=== PATIENT | female | born 1970 | race American Indian/Alaskan Native ===

== ENCOUNTER 2017-02-08 13:05 | Emergency (ER) | payer OTHER ==
[2017-02-08 14:55] VITALS: BP 142/86
[2017-02-08] MEDS ORDERED: NORCO 5/325 PO ONE (18:02)
[2017-02-08] MEDS ORDERED: FLEXERIL PO ONE (18:02)
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
== END 2017-02-08 18:34 | disposition home or self-care (01) ==
LOC: ED 13:05
DX: S16.1XXA Strain of muscle, fascia and tendon at neck level, initial encounter (principal); M25.512 Pain in left shoulder; I10 Essential (primary) hypertension; K21.9 Gastro-esophageal reflux disease without esophagitis; J45.909 Unspecified asthma, uncomplicated; F17.200 Nicotine dependence, unspecified, uncomplicated
CPT/HCPCS: 99283

== ENCOUNTER 2018-05-30 11:24 | Outpatient (CLI) | payer OTHER ==
--- NOTE | 2018-05-30 13:26 | Mammography Report ---
Screening mammogram: Routine views are compared to prior exam in October 2015. The overall breast pattern in generally fatty replaced. There is a circumscribed 7 mm nodule in the central right breast and a slightly smaller nodule just anterior to this in CC projection that are not clearly identified in the lateral projection. These are not apparent on her prior exam however the remainder of the breast pattern is generally unchanged. CAD used. Impression: Right breast asymmetries. Recommendation: Additional compression imaging and ultrasound if needed. BI-RADS CATEGORY: 0 = Needs additional imaging evaluation ACR BI-RADS MAMMOGRAPHIC CODES: 0 = Needs additional imaging evaluation; 1 = Negative; 2 = Benign; 3 = Probably benign; 4 = Suspicious; 5 = Malignant; 6 = Known biopsy-proven malignancy COMMENT: 1. Dense breast tissue, i.e., adenosis, fibrocystic changes, etc., may obscure an underlying neoplasm. 2. Approximately 10% of cancers are not detected with mammography. 3. A negative mammography report should not delay biopsy if a clinically suspicious mass is present.
== END 2018-05-30 11:25 | disposition home or self-care (01) ==
LOC: MAMMO 11:24
PROVIDERS: ATTEND Family Medicine
DX: Z12.31 Encounter for screening mammogram for malignant neoplasm of breast (principal); I10 Essential (primary) hypertension; E66.9 Obesity, unspecified; J45.909 Unspecified asthma, uncomplicated; F41.9 Anxiety disorder, unspecified; F17.219 Nicotine dependence, cigarettes, with unspecified nicotine-induced disorders; Z90.710 Acquired absence of both cervix and uterus; Z88.8 Allergy status to other drugs, medicaments and biological substances
CPT/HCPCS: 77067

== ENCOUNTER 2019-06-29 07:44 | Emergency (ER) | payer OTHER ==
[2019-06-29] MEDS ORDERED: PERCOCET 5/325 PO ONE (09:11)
[2019-06-29] MEDS ORDERED: TORADOL IM ONE (09:11)
--- NOTE | 2019-06-29 09:18 | Emergency Department Report ---
ED Lower Extremity HPI - General Chief Complaint: Extremity Problem,Nontraumatic Stated Complaint: LFT LEG PAIN/SWELLING Time Seen by Provider: 06/29/19 09:08 Source: patient Mode of arrival: Wheelchair Limitations: No Limitations - History of Present Illness Initial Comments: Mrs. Kaba is a 49 yo female with history of asthma, GERD, hypertension, a nxiety who presents with left upper thigh pain for the 3 weeks. She works as a sales route driver helper. She feels as if her positioning on equipment at work may be causing the pain. She has pain in the left upper thigh muscle. Denies swelling. Denies trauma. Denies fever. MD Complaint: other (left upper thigh pain ) -: Gradual Injury: Thigh: Left Type of Injury: blunt Place: work Severity: moderate Worsens With: palpation Context: other (fork lift manager) Associated Symptoms: ambulatory Treatments Prior to Arrival: other (ibuprofen stopped working) - Related Data Home Medications Medication Instructions Recorded Confirmed Last Taken Lisinopril [Zestril] 20 mg PO QDAY 03/04/14 02/08/17 02/08/17 14:48 Triamterene/Hydrochlorothiazid 37.5 each PO DAILY 03/04/14 02/08/17 02/08/17 14:47 [Triamterene-Hctz 50-25 mg Cap] Previous Rx's Medication Instructions Recorded Last Taken Type ALPRAZolam [Xanax] 0.25 mg PO TID PRN #12 tablet 03/04/14 Unknown Rx Cyclobenzaprine [Flexeril] 10 mg PO TID PRN #15 tablet 02/08/17 Unknown Rx traMADol [Ultram] 50 mg PO Q6HR PRN #20 tablet 02/08/17 Unknown Rx Cyclobenzaprine [Flexeril] 10 mg PO TID PRN #20 tablet 06/29/19 Unknown Rx oxyCODONE /ACETAMINOPHEN [Percocet 1 tab PO Q6HR PRN #10 tablet 06/29/19 Unknown Rx 5/325] Allergies Allergy/AdvReac Type Severity Reaction Status Date / Time promethazine HCl Allergy Hives Verified 02/08/17 14:46 [From Phenergan] ED Review of Systems ROS: Stated complaint: LFT LEG PAIN/SWELLING Other details as noted in HPI Constitutional: denies: fever, malaise Respiratory: denies: shortness of breath Cardiovascular: denies: chest pain Gastrointestinal: denies: abdominal pain Skin: denies: rash, lesions Neurological: denies: numbness, paresthesias ED Past Medical Hx - Past Medical History Hx Hypertension: Yes Hx Congestive Heart Failure: No Hx Diabetes: No Hx GERD: Yes Hx Psychiatric Treatment: Yes (anxiety) Hx Asthma: Yes Hx COPD: No - Surgical History Additional Surgical History: partial hysterectomy. csection x 2 - Social History Smoking Status: Never Smoker Substance Use Type: Alcohol - Medications Home Medications: Home Medications Medication Instructions Recorded Confirmed Last Taken Type ALPRAZolam [Xanax] 0.25 mg PO TID PRN #12 tablet 03/04/14 02/08/17 Unknown Rx Lisinopril [Zestril] 20 mg PO QDAY 03/04/14 02/08/17 02/08/17 14:48 History Triamterene/Hydrochlorothiazid 37.5 each PO DAILY 03/04/14 02/08/17 02/08/17 14:47 History [Triamterene-Hctz 50-25 mg Cap] Cyclobenzaprine [Flexeril] 10 mg PO TID PRN #15 tablet 02/08/17 Unknown Rx traMADol [Ultram] 50 mg PO Q6HR PRN #20 tablet 02/08/17 Unknown Rx Cyclobenzaprine [Flexeril] 10 mg PO TID PRN #20 tablet 06/29/19 Unknown Rx oxyCODONE /ACETAMINOPHEN [Percocet 1 tab PO Q6HR PRN #10 tablet 06/29/19 Unknown Rx 5/325] ED Physical Exam - General Limitations: No Limitations General appearance: alert, in no apparent distress - Respiratory Respiratory exam: Absent: respiratory distress - Extremities Exam Extremities exam: Present: normal inspection, full ROM. Absent: tenderness - Expanded Lower Extremity Exam Left Hip exam: Present: normal inspection, full ROM. Absent: tenderness, swelling, abrasion, laceration, ecchymosis, deformity, crepidus, dislocation, erythema, external rotation, internal rotation, shortening, pelvic stability Knee exam: Present: normal inspection, full ROM. Absent: tenderness, swelling, abrasion, laceration, ecchymosis, deformity Lower Leg exam: Present: normal inspection, full ROM. Absent: tenderness, swelling, abrasion Ankle exam: Present: normal inspection, full ROM. Absent: tenderness, swelling, abrasion Foot/Toe exam: Present: normal inspection, full ROM. Absent: tenderness, swelling, abrasion Neuro vascular tendon exam: Present: no vascular compromise - Neurological Exam Neurological exam: Present: alert, oriented X3 - Psychiatric Psychiatric exam: Present: normal affect, normal mood - Skin Skin exam: Present: warm, dry, intact, normal color ED Course Vital Signs 06/29/19 08:11 Temperature 98.6 F Pulse Rate 89 Respiratory 18 Rate Blood Pressure 120/85 O2 Sat by Pulse 95 Oximetry ED Lower Extremity MDM - Medical Decision Making Mrs. Kaba presents with left thigh strain due to overuse at work. No indication of DVT, cellulitis, bursitis. DJD is a consideration. I have referred her to orthopedic surgeon. Prescribed Percocet and Flexeril. Critical care attestation.: If time is entered above; I have spent that time in minutes in the direct care of this critically ill patient, excluding procedure time. ED Disposition Clinical Impression: Strain of left hip and thigh Disposition: DC- TO HOME OR SELFCARE Is pt being admited?: No Does the pt Need Aspirin: No Condition: Stable Instructions: Muscle Strain (ED) Prescriptions: Cyclobenzaprine [Flexeril] 10 mg PO TID PRN #20 tablet PRN Reason: Muscle Spasm oxyCODONE /ACETAMINOPHEN [Percocet 5/325] 1 tab PO Q6HR PRN #10 tablet PRN Reason: Pain Referrals: SHELBY CHOW MD [Staff Physician] - 3-5 Days Forms: Work/School Release Form(ED)
[2019-06-29 09:27] VITALS: BP 121/86
== END 2019-06-29 09:26 | disposition home or self-care (01) ==
LOC: ED 07:44
DX: S76.012A Strain of muscle, fascia and tendon of left hip, initial encounter (principal); S76.912A Strain of unspecified muscles, fascia and tendons at thigh level, left thigh, initial encounter; J45.909 Unspecified asthma, uncomplicated; K21.9 Gastro-esophageal reflux disease without esophagitis; I10 Essential (primary) hypertension; F41.9 Anxiety disorder, unspecified; Z79.899 Other long term (current) drug therapy; Z88.8 Allergy status to other drugs, medicaments and biological substances; Z90.711 Acquired absence of uterus with remaining cervical stump; W22.8XXA Striking against or struck by other objects, initial encounter; Y93.89 Activity, other specified; Y92.69 Other specified industrial and construction area as the place of occurrence of the external cause; Y99.8 Other external cause status
CPT/HCPCS: 96372; 99282; J1885

== ENCOUNTER 2019-07-22 08:10 | Outpatient (CLI) | payer OTHER ==
--- NOTE | 2019-07-22 16:08 | Mammography Report ---
DIGITAL SCREENING MAMMOGRAM WITH CAD, 07/22/2019 INDICATION: Routine screening mammography. TECHNIQUE: Digital bilateral 2D mammography was obtained in the craniocaudal and mediolateral obliq ue projections. This examination was interpreted with the benefit of Computer-Aided Detection analysi s. COMPARISON: 05/30/2018 FINDINGS: Breast Density: The breasts are almost entirely fatty. There is no evidence of dominant mass, suspicious calcifications or architectural distortion in eithe r breast. IMPRESSION: No mammographic evidence of malignancy. Follow up recommendation: Routine yearly BI-RADS Category 1: Negative. A "normal" or negative report should not discourage follow up or biopsy of a clinically significant f inding. A written summary of these findings will be mailed to the patient. The patient will be entered into a mammography reporting system which will generate a reminder letter for the patient's next appointmen t at the appropriate interval. The [employer] recommends yearly mammograms starting at age 40 and continuing as l tayo as a woman is in good health. Breast MRI is recommended for women with an approximate 20-25% or greater lifetime risk of breast cancer, including women with a strong family history of breast or ova destiney cancer or who have been treated for Hodgkin's disease. Signer Name: Den Cisneros MD Signed: 07/22/2019 4:03 PM Workstation Name: [id number]
== END 2019-07-22 08:11 | disposition home or self-care (01) ==
LOC: SPVWC 08:10
PROVIDERS: ATTEND Family Medicine
DX: Z12.31 Encounter for screening mammogram for malignant neoplasm of breast (principal); I10 Essential (primary) hypertension; J45.909 Unspecified asthma, uncomplicated; K21.9 Gastro-esophageal reflux disease without esophagitis
CPT/HCPCS: 77067

== ENCOUNTER 2021-03-13 11:47 | Emergency (ER) | payer BC ==
[2021-03-13] MEDS ORDERED: IPRATROPIUM 0.02% NEBU 2.5 ML IH ONE (14:06)
[2021-03-13] MEDS ORDERED: ALBUTEROL 2.5 MG/3 ML NEBU IH ONE (14:06)
[2021-03-13] MEDS ORDERED: predniSONE 20 MG TAB PO ONE ×2 (14:28→16:35)
--- NOTE | 2021-03-13 14:32 | Emergency Department Report ---
ED General Adult HPI - General Chief complaint: Dyspnea/Respdistress Stated complaint: SOB/COUGHING PUI?: Yes Time Seen by Provider: 03/13/21 14:12 Source: patient, RN notes reviewed, old records reviewed Mode of arrival: Ambulatory Limitations: No Limitations - History of Present Illness Initial comments: The patient was evaluated in the emergency department for symptoms described in the history of present illness. He/she was evaluated in the context of the global COVID-19 pandemic, which necessitated consideration that the patient might be at risk for infection with the virus that causes COVID-19. Institutional protocols and algorithms that pertain to the evaluation of patients at risk for COVID-19 are in a state of rapid change based on information released by regulatory bodies including the CDC and federal and state organizations. These policies and algorithms were followed during the patient's care in the emergency department. Please note that these policies, procedures and recommendations changed on a rapid basis. During the entire history and physical examination, I had a complete personal protective equipment. The patient is a 50-year-old female. She has a history of diabetes, hypertension, clean cardiac catheterization in 2013 at this hospital, without angiographic evidence of coronary artery disease, asthma/reactive airways disease, diagnosed at the age of 29, with no lifetime intubations, body mass index of 43, and occasional tobacco use. The patient presents to the ER today with a complaint of painless cough, wheezing. This has been going on for a few days. The patient endorses decreased appetite, but no loss of taste, and no loss of smell. The patient denies physical pain. Patient has clear mucus production. Patient received her first Covid vaccination on February 25. Patient has not been around anyone that has Covid that she is aware of. The patient currently has no posterior leg pain or leg swelling, denies recent surgery, immobilization, patient denies travel, immobilization or surgery. Of note, this patient did have a relatively recent trip to [place] a few weeks ago, however, she reports frequent stops, and no prolonged immobilization. Her symptoms typically improved with albuterol and steroids. -: Gradual, days(s) Consistency: constant Improves with: rest Worsens with: movement - Related Data Home Medications Medication Instructions Recorded Confirmed Last Taken Triamterene/Hydrochlorothiazid 37.5 each PO DAILY 03/04/14 02/08/17 02/08/17 14:47 [Triamterene-Hctz 50-25 mg Cap] lisinopriL [Zestril] 20 mg PO QDAY 03/04/14 02/08/17 02/08/17 14:48 Previous Rx's Medication Instructions Recorded Last Taken Type traMADoL [Ultram] 50 mg PO Q6HR PRN #20 tablet 02/08/17 Unknown Rx Benzonatate [Tessalon Perles] 100 mg PO Q8HR PRN #30 capsule 05/10/20 Unknown Rx Fluticasone [Flonase] 2 spray NS QDAY #1 bottle 05/10/20 Unknown Rx Loratadine [Claritin] 10 mg PO DAILY #30 tablet 05/10/20 Unknown Rx Acetaminophen [Non-Aspirin Extra 500 mg PO Q6HR PRN #30 tablet 03/13/21 Unknown Rx Strength] Albuterol Sulfate [Proair 90 mcg IH Q4HR PRN #2 aer.pow.ba 03/13/21 Unknown Rx Respiclick] Benzonatate [Tessalon Perles] 100 mg PO Q8HR PRN #30 capsule 03/13/21 Unknown Rx Fluticasone [Flonase] 1 spray NS QDAY #1 bottle 03/13/21 Unknown Rx predniSONE [Deltasone] 40 mg PO QDAY #8 tab 03/13/21 Unknown Rx Allergies Allergy/AdvReac Type Severity Reaction Status Date / Time promethazine HCl Allergy Hives Verified 02/08/17 14:46 [From Phenergan] ED Review of Systems ROS: Stated complaint: SOB/COUGHING Other details as noted in HPI Constitutional: chills, fever, malaise, weakness Eyes: denies: eye discharge ENT: congestion Respiratory: cough, shortness of breath Cardiovascular: denies: chest pain Gastrointestinal: denies: abdominal pain Musculoskeletal: denies: myalgia Neurological: weakness ED Past Medical Hx - Past Medical History Previous Medical History?: Yes Hx Hypertension: Yes Hx Congestive Heart Failure: No Hx Diabetes: Yes Hx GERD: Yes Hx Psychiatric Treatment: Yes (anxiety) Hx Asthma: Yes Hx COPD: No - Surgical History Additional Surgical History: partial hysterectomy. csection x 2 - Social History Smoking Status: Current Every Day Smoker Substance Use Type: None - Medications Home Medications: Home Medications Medication Instructions Recorded Confirmed Last Taken Type Triamterene/Hydrochlorothiazid 37.5 each PO DAILY 03/04/14 02/08/17 02/08/17 1 4:47 History [Triamterene-Hctz 50-25 mg Cap] lisinopriL [Zestril] 20 mg PO QDAY 03/04/14 02/08/17 02/08/17 14:48 History traMADoL [Ultram] 50 mg PO Q6HR PRN #20 tablet 02/08/17 Unknown Rx Benzonatate [Tessalon Perles] 100 mg PO Q8HR PRN #30 capsule 05/10/20 Unknown Rx Fluticasone [Flonase] 2 spray NS QDAY #1 bottle 05/10/20 Unknown Rx Loratadine [Claritin] 10 mg PO DAILY #30 tablet 05/10/20 Unknown Rx Acetaminophen [Non-Aspirin Extra 500 mg PO Q6HR PRN #30 tablet 03/13/21 Unknown Rx Strength] Albuterol Sulfate [Proair 90 mcg IH Q4HR PRN #2 aer.pow.ba 03/13/21 Unknown Rx Respiclick] Benzonatate [Tessalon Perles] 100 mg PO Q8HR PRN #30 capsule 03/13/21 Unknown Rx Fluticasone [Flonase] 1 spray NS QDAY #1 bottle 03/13/21 Unknown Rx predniSONE [Deltasone] 40 mg PO QDAY #8 tab 03/13/21 Unknown Rx ED Physical Exam - General Limitations: No Limitations General appearance: alert, in no apparent distress, anxious, obese - Head Head exam: Present: atraumatic, normocephalic - Eye Eye exam: Present: normal appearance, EOMI. Absent: nystagmus - ENT ENT exam: Present: normal exam, normal orophraynx, mucous membranes moist, normal external ear exam - Neck Neck exam: Present: normal inspection, full ROM. Absent: tenderness, meningismus - Respiratory Respiratory exam: Present: wheezes, rhonchi. Absent: respiratory distress, stridor - Cardiovascular Cardiovascular Exam: Present: regular rate, normal rhythm, normal heart sounds. Absent: bradycardia, tachycardia, irregular rhythm, systolic murmur, diastolic murmur, rubs, gallop - GI/Abdominal GI/Abdominal exam: Present: soft. Absent: distended, tenderness, guarding, rebound, rigid, pulsatile mass - Extremities Exam Extremities exam: Present: normal inspection, full ROM, other (2+ pulses noted in the bilateral upper and lower extremities. There is no palpable cord. negative Homans sign. Muscular compartments are soft. The pelvis is stable.). Absent: pedal edema, calf tenderness - Back Exam Back exam: Present: normal inspection, full ROM. Absent: tenderness, CVA tenderness (R), CVA tenderness (L), paraspinal tenderness, vertebral tenderness - Neurological Exam Neurological exam: Present: alert, other (No facial droop. Tongue midline. Extraocular movements intact bilaterally. Facial sensation intact to light touch in V1, V2, V3 distribution bilaterally. 5 and a 5 strength in 4 extremities. Sensation intact to light touch in 4 extremities.) - Psychiatric Psychiatric exam: Present: anxious - Skin Skin exam: Present: warm, dry, intact, normal color. Absent: rash ED Course Vital Signs 03/13/21 03/13/21 13:53 16:37 Temperature 98.6 F Pulse Rate 90 Respiratory 22 Rate Blood Pressure 117/72 [Right] O2 Sat by Pulse 98 Oximetry O2 Sat by Pulse 99 Oximetry [ Digit-Finger] - Reevaluation(s) Reevaluation #1: 03/13/21 14:38 Differential diagnosis, including but not limited to: Bronchitis, pneumonitis, pneumonia, reactive airways disease, COVID-19 Assessment and plan: 50-year-old female, who is currently afebrile, with reassuring vital signs, with a history of reactive airways disease, who is not currently tachycardic or significantly hypoxic, who denies pertinent DVT and pulmonary embolism risk factors, who is low risk by Wells criteria for pulmonary embolism, with painless cough and wheezing and shortness of breath, low-grade temperature at home, no documented fever that she is aware of. Suspect bronchitis versus pneumonitis. Patient has received one Covid vaccination. She will be given albuterol, Atrovent and steroids. We will obtain x-ray of the chest and EKG. Patient will be given 5-minute trial of ambulation when she is complete her therapy. Reassess after initial data points. Have discussed this plan of care with the patient, who verbalized understanding, and is amenable to this plan of care. Reevaluation #2: 03/13/21 16:45 Patient feels improved. Patient able to ambulate with a steady gait without desaturation. Her chest x-ray is unremarkable. Her EKG is unremarkable. She is suitable for trial of outpatient management at this time. This is likely reactive airways disease, and even if patient has Covid after receiving her first round of COVID-19 vaccination, she is suitable for discharge with outpatient follow-up. - Pulse Oximetry Interpretation Digit-Finger Initial Pulse Oximetry Readin O2 Sat by Pulse Oximetry: 99 Actions Taken: none ED Medical Decision Making - Lab Data Vital Signs 03/13/21 13:53 Temperature 98.6 F Pulse Rate 90 Respiratory 22 Rate Blood Pressure 117/72 [Right] O2 Sat by Pulse 98 Oximetry - EKG Data 03/13/21 16:37 EKG interpreted at 15: 20 Sinus rhythm, 83 bpm. Normal axis, normal intervals, motion artifact, borderline left ventricular hypertrophy. This is an abnormal EKG. This is not a STEMI. - Radiology Data Radiology results: pending, report reviewed, image reviewed [facility] [address] [place] [address] XRay Report Signed Patient: GHANSHYAM WILSON MR#: [id number] : 1970 Acct:[id number] Age/Sex: 50 / F ADM Date: 03/13/21 Loc: ED Attending Dr: Ordering Physician: ISABEL GREGORY MD Date of Service: 03/13/21 Procedure(s): XR chest routine 2V Accession Number(s): [id number] cc: ISABEL GREGORY MD Fluoro Time In Minutes: CHEST 2 VIEWS INDICATION / CLINICAL INFORMATION: Cough, shortness of breath, chills. COMPARISON: 05/10/2020 FINDINGS: SUPPORT DEVICES: None. HEART / MEDIASTINUM: No significant abnormality. LUNGS / PLEURA: No significant pulmonary or pleural abnormality. No pneumothorax. ADDITIONAL FINDINGS: No significant additional findings. IMPRESSION: 1. No acute findings. Signer Name: Ezra Espinoza MD Signed: 03/13/2021 3:13 PM Workstation Name: [email or web address] [id number] Transcribed By: JACKELIN Dictated By: Ezra Espinoza MD Electronically Authenticated By: Ezra Espinoza MD Signed Date/Time: 03/13/21 1513 DD/ 1512 Critical care attestation.: If time is entered above; I have spent that time in minutes in the direct care of this critically ill patient, excluding procedure time. ED Disposition Clinical Impression: Reactive airway disease, Suspected 2019-nCoV infection Disposition: DC-01 TO HOME OR SELFCARE Is pt being admited?: No Does the pt Need Aspirin: No Condition: Stable Instructions: Asthma, Adult, COVID-19 Additional Instructions: Patient may have either reactive airways disease/asthma, or COVID-19. Covid symptoms typically last 10 to 14 days, but may persist for longer than that. There is no cure at this time for COVID. Please make certain to self isolate and self quarantine, follow-up with an outpatient primary care doctor within the next 3 to 5 days, wash hands with soap and water frequently, thoroughly and often, patient may take the prescribed medications as needed and directed. Advance diet and drink plenty of fluids as tolerated. Avoid interactions with the very elderly, very young, and those with chronic medical conditions. Return to the emergency room right away with new pain, worsening pain, migration of pain, projectile vomiting, change in mental status, confusion, inability to tolerate liquid feeds, new, worsened or different symptoms not present on the initial emergency room evaluation. We do recommend follow-up with an outpatient primary care doctor, within the next 3 to 5 days, for repeat evaluation. Referrals: KENAN PENALOZA [Other] - 3-5 Days
--- NOTE | 2021-03-13 15:17 | XRay Report ---
CHEST 2 VIEWS INDICATION / CLINICAL INFORMATION: Cough, shortness of breath, chills. COMPARISON: 05/10/2020 FINDINGS: SUPPORT DEVICES: None. HEART / MEDIASTINUM: No significant abnormality. LUNGS / PLEURA: No significant pulmonary or pleural abnormality. No pneumothorax. ADDITIONAL FINDINGS: No significant additional findings. IMPRESSION: 1. No acute findings. Signer Name: Ezra Espinoza MD Signed: 03/13/2021 3:13 PM Workstation Name: [email or web address]
[2021-03-13 17:09] VITALS: BP 149/87
--- NOTE | 2021-03-16 17:11 | Electrocardiograph Report ---
[facility] Test Date: 2021-03-13 Test Time: 15:17:50 Pat Name: GHANSHYAM WILSON Department: Room: Gender: F Ems Driver: MARTHA : 1970 Requested By: ISABEL GREGORY Order Number: [id number] Reading MD: Bong Kwong Measurements Intervals [place] Rate: 83 P: 75 LA: 153 QRS: 47 QRSD: 96 T: 55 QT: 370 QTc: 434 Interpretive Statements Sinus rhythm No previous ECG available for comparison Electronically Signed On 03-16-2021 17:11:31 EDT by Bong Kwong
== END 2021-03-13 17:09 | disposition home or self-care (01) ==
LOC: ED 11:47
DX: J45.909 Unspecified asthma, uncomplicated (principal); Z20.822 Contact with and (suspected) exposure to COVID-19; I10 Essential (primary) hypertension; E11.9 Type 2 diabetes mellitus without complications; K21.9 Gastro-esophageal reflux disease without esophagitis; F41.9 Anxiety disorder, unspecified; F17.200 Nicotine dependence, unspecified, uncomplicated; Z98.890 Other specified postprocedural states; Z79.899 Other long term (current) drug therapy; Z88.8 Allergy status to other drugs, medicaments and biological substances
CPT/HCPCS: 71046; 93005; 94640; 99283; J7512

== ENCOUNTER 2021-03-24 13:46 | Emergency (ER) | payer BC ==
[2021-03-24 15:27] VITALS: BP 134/84
--- NOTE | 2021-03-24 15:31 | Emergency Department Report ---
ED Abdominal Pain HPI - General Chief Complaint: Abdominal Pain Stated Complaint: ABD PAINS Time Seen by Provider: 03/24/21 15:26 Source: patient Mode of arrival: Ambulatory Limitations: No Limitations - History of Present Illness Initial Comments: Patient is a 50-year-old female presents emergency room with complaints of lower abdominal discomfort that radiates to her back that began 3 days ago. Patient states that she has been constipated for the last 4 days, she states that she used one laxative [id number] without much relief. She states that she is still able to pass gas and tolerate p.o. intake. Patient states that she also had urinary frequency. She denies any fever, nausea, vomiting, diarrhea, dysuria, abnormal vaginal discharge. Past medical history of diabetes, GERD, asthma, anxiety, hypertension. Allergy to promethazine Severity scale (0 -10): 9 - Related Data Home Medications Medication Instructions Recorded Confirmed Last Taken Triamterene/Hydrochlorothiazid 37.5 each PO DAILY 03/04/14 02/08/17 02/08/17 14:47 [Triamterene-Hctz 50-25 mg Cap] lisinopriL [Zestril] 20 mg PO QDAY 03/04/14 02/08/17 02/08/17 14:48 Previous Rx's Medication Instructions Recorded Last Taken Type traMADoL [Ultram] 50 mg PO Q6HR PRN #20 tablet 02/08/17 Unknown Rx Benzonatate [Tessalon Perles] 100 mg PO Q8HR PRN #30 capsule 05/10/20 Unknown Rx Fluticasone [Flonase] 2 spray NS QDAY #1 bottle 05/10/20 Unknown Rx Loratadine [Claritin] 10 mg PO DAILY #30 tablet 05/10/20 Unknown Rx Acetaminophen [Non-Aspirin Extra 500 mg PO Q6HR PRN #30 tablet 03/13/21 Unknown Rx Strength] Albuterol Sulfate [Proair 90 mcg IH Q4HR PRN #2 aer.pow.ba 03/13/21 Unknown Rx Respiclick] Benzonatate [Tessalon Perles] 100 mg PO Q8HR PRN #30 capsule 03/13/21 Unknown Rx Fluticasone [Flonase] 1 spray NS QDAY #1 bottle 03/13/21 Unknown Rx predniSONE [Deltasone] 40 mg PO QDAY #8 tab 03/13/21 Unknown Rx Docusate Sodium [Colace] 100 mg PO BID PRN #20 capsule 03/24/21 Unknown Rx Glycerin 1 each RC DAILY PRN #7 supp.rect 03/24/21 Unknown Rx Sodium Phosphate,Chaves-Dibasic 133 ml RC ONCE #1 enema 03/24/21 Unknown Rx [Enema Ready To Use] Allergies Allergy/AdvReac Type Severity Reaction Status Date / Time promethazine HCl Allergy Hives Verified 02/08/17 14:46 [From Phenergan] ED Review of Systems ROS: Stated complaint: ABD PAINS Other details as noted in HPI Comment: All other systems reviewed and negative ED Past Medical Hx - Past Medical History Previous Medical History?: Yes Hx Hypertension: Yes Hx Congestive Heart Failure: No Hx Diabetes: Yes Hx GERD: Yes Hx Psychiatric Treatment: Yes (anxiety) Hx Asthma: Yes Hx COPD: No - Surgical History Past Surgical History?: Yes Additional Surgical History: partial hysterectomy. csection x 2 - Social History Smoking Status: Current Every Day Smoker Substance Use Type: None - Medications Home Medications: Home Medications Medication Instructions Recorded Confirmed Last Taken Type Triamterene/Hydrochlorothiazid 37.5 each PO DAILY 03/04/14 02/08/17 02/08/17 14:47 History [Triamterene-Hctz 50-25 mg Cap] lisinopriL [Zestril] 20 mg PO QDAY 03/04/14 02/08/17 02/08/17 14:48 History traMADoL [Ultram] 50 mg PO Q6HR PRN #20 tablet 02/08/17 Unknown Rx Benzonatate [Tessalon Perles] 100 mg PO Q8HR PRN #30 capsule 05/10/20 Unknown Rx Fluticasone [Flonase] 2 spray NS QDAY #1 bottle 05/10/20 Unknown Rx Loratadine [Claritin] 10 mg PO DAILY #30 tablet 05/10/20 Unknown Rx Acetaminophen [Non-Aspirin Extra 500 mg PO Q6HR PRN #30 tablet 03/13/21 Unknown Rx Strength] Albuterol Sulfate [Proair 90 mcg IH Q4HR PRN #2 aer.pow.ba 03/13/21 Unknown Rx Respiclick] Benzonatate [Tessalon Perles] 100 mg PO Q8HR PRN #30 capsule 03/13/21 Unknown Rx Fluticasone [Flonase] 1 spray NS QDAY #1 bottle 03/13/21 Unknown Rx predniSONE [Deltasone] 40 mg PO QDAY #8 tab 03/13/21 Unknown Rx Docusate Sodium [Colace] 100 mg PO BID PRN #20 capsule 03/24/21 Unknown Rx Glycerin 1 each RC DAILY PRN #7 supp.rect 03/24/21 Unknown Rx Sodium Phosphate,Chaves-Dibasic 133 ml RC ONCE #1 enema 03/24/21 Unknown Rx [Enema Ready To Use] ED Physical Exam - General Limitations: No Limitations General appearance: alert, in no apparent distress - Head Head exam: Present: atraumatic, normocephalic - Eye Eye exam: Present: normal appearance - ENT ENT exam: Present: mucous membranes moist - Respiratory Respiratory exam: Present: normal lung sounds bilaterally. Absent: respiratory distress, wheezes, rales, rhonchi, stridor, chest wall tenderness, accessory muscle use, decreased breath sounds, prolonged expiratory - Cardiovascular Cardiovascular Exam: Present: regular rate, normal rhythm, normal heart sounds. Absent: systolic murmur, diastolic murmur, rubs, gallop - GI/Abdominal GI/Abdominal exam: Present: soft, normal bowel sounds. Absent: distended, tenderness, guarding, rebound, rigid - Neurological Exam Neurological exam: Present: alert, oriented X3 - Psychiatric Psychiatric exam: Present: normal affect, normal mood - Skin Skin exam: Present: warm, dry, intact ED Course Vital Signs 03/24/21 15:26 Temperature 98.8 F Pulse Rate 73 Respiratory 20 Rate Blood Pressure 134/84 [Right] O2 Sat by Pulse 97 Oximetry ED Medical Decision Making - Lab Data Result diagrams: 03/24/21 15:32 03/24/21 15:32 Lab Results 03/24/21 03/24/21 03/24/21 Range/Units 15:32 15:32 16:02 WBC 8.8 (4.5-11.0) K/mm3 RBC 4.37 (3.65-5.03) M/mm3 Hgb 14.5 H (10.1-14.3) gm/dl Hct 43.5 H (30.3-42.9) % MCV 100 H (79-97) fl MCH 33 H (28-32) pg MCHC 33 (30-34) % RDW 15.0 (13.2-15.2) % Plt Count 130 L (140-440) K/mm3 Lymph % (Auto) 24.9 (13.4-35.0) % Chaves % (Auto) 7.9 H (0.0-7.3) % Eos % (Auto) 3.7 (0.0-4.3) % Baso % (Auto) 0.5 (0.0-1.8) % Lymph # (Auto) 2.2 (1.2-5.4) K/mm3 Chaves # (Auto) 0.7 (0.0-0.8) K/mm3 Eos # (Auto) 0.3 (0.0-0.4) K/mm3 Baso # (Auto) 0.0 (0.0-0.1) K/mm3 Seg Neutrophils % 63.0 (40.0-70.0) % Seg Neutrophils # 5.5 (1.8-7.7) K/mm3 Sodium 141 (137-145) mmol/L Potassium 4.5 (3.6-5.0) mmol/L Chloride 99.2 (98-107) mmol/L Carbon Dioxide 32 H (22-30) mmol/L Anion Gap 14 mmol/L BUN 11 (7-17) mg/dL Creatinine 0.8 (0.6-1.2) mg/dL Estimated GFR > 60 ml/min BUN/Creatinine Ratio 14 % Glucose 90 (65-100) mg/dL Calcium 9.0 (8.4-10.2) mg/dL Total Bilirubin 0.30 (0.1-1.2) mg/dL AST 19 (5-40) units/L ALT 15 (7-56) units/L Alkaline Phosphatase 70 (35-129) units/L Total Protein 7.0 (6.3-8.2) g/dL Albumin 3.8 L (3.9-5) g/dL Albumin/Globulin Ratio 1.2 % Lipase 19 (13-60) units/L Urine Color Yellow (Yellow) Urine Turbidity Clear (Clear) Urine pH 7.0 (5.0-7.0) Ur Specific [place] 1.017 (1.003-1.030) Urine Protein <15 mg/dl (Negative) mg/dL Urine Glucose (UA) Neg (Negative) mg/dL Urine Ketones Neg (Negative) mg/dL Urine Blood Neg (Negative) Urine Nitrite Neg (Negative) Urine Bilirubin Neg (Negative) Urine Urobilinogen < 2.0 (<2.0) mg/dL Ur Leukocyte Esterase Neg (Negative) Urine WBC (Auto) 1.0 (0.0-6.0) /HPF Urine RBC (Auto) 1.0 (0.0-6.0) /HPF U Epithel Cells (Auto) 4.0 (0-13.0) /HPF Urine Mucus Few /HPF - Radiology Data Radiology results: report reviewed Ordering Physician: CHERYL BOWER Date of Service: 03/24/21 Procedure(s): XR abdomen 2V Accession Number(s): [id number] cc: CHERYL BOWER Fluoro Time In Minutes: ABDOMEN 3 VIEW(S) INDICATION / CLINICAL INFORMATION: constipation. COMPARISON: None available. FINDINGS: TUBES / LINES: None. BOWEL GAS PATTERN: Nonobstructive bowel gas pattern. Abundant fecal material noted in the descending colon and rectal vault. FREE AIR / EXTRALUMINAL GAS: None seen. ADDITIONAL FINDINGS: Moderate lumbar spondylosis. CHEST: Visualized chest shows no significant abnormality. IMPRESSION: 1. Findings consistent with provided history of constipation. Signer Name: Kimberly Saenz MD Signed: 03/24/2021 4:37 PM Workstation Name: [id number] Transcribed By: Dictated By: KIMBERLY SAENZ Electronically Authenticated By: KIMBERLY SAENZ Signed Date/Time: 03/24/211636 DD/ 35 TD/TT: Print - Medical Decision Making Patient is a 50-year-old female presents emergency room with complaints of lower abdominal discomfort that radiates to her back that began 3 days ago. Patient states that she has been constipated for the last 4 days, she states that she used one laxative [id number] without much relief. She states that she is still able to pass gas and tolerate p.o. intake. Patient states that she also had urinary frequency. She denies any fever, nausea, vomiting, diarrhea, dysuria, abnormal vaginal discharge. Past medical history of diabetes, GERD, asthma, anxiety, hypertension. Allergy to promethazine. Vitals are normal. No abdominal tenderness on exam, no guarding, no rebound, no rigidity, no masses, no peritoneal signs. Labs are normal. UA is within normal limits. Abdominal x-ray: 1. Findings consistent with provided history of constipation. Discussed all results with patient and answer questions. Patient given prescription for Colace, glycerin suppository, enema. Advised patient Please use medication as prescribed. Follow-up with your primary care doctor. Return to emergency room immediately for any new or worsening symptoms. Patient is not having any obstructive symptoms, discussed return precautions. Critical care attestation.: If time is entered above; I have spent that time in minutes in the direct care o f this critically ill patient, excluding procedure time. ED Disposition Clinical Impression: Abdominal pain Qualifiers: Abdominal location: unspecified location Qualified Code(s): R10.9 - Unspecified abdominal pain Constipation Qualifiers: Constipation type: unspecified constipation type Qualified Code(s): K59.00 - Constipation, unspecified Disposition: TO HOME OR SELFCARE Is pt being admited?: No Does the pt Need Aspirin: No Condition: Stable Instructions: High-Fiber Diet, Constipation, Adult, [id number], Abdominal Pain (ED) Additional Instructions: Please use medication as prescribed. Follow-up with your primary care doctor. Return to emergency room immediately for any new or worsening symptoms. Prescriptions: Docusate Sodium [Colace] 100 mg PO BID PRN #20 capsule PRN Reason: constipation Sodium Phosphate,Chaves-Dibasic [Enema Ready To Use] 133 ml RC ONCE #1 enema Glycerin 1 each RC DAILY PRN #7 supp.rect PRN Reason: constipation Referrals: KENAN GIBBS MD [Primary Care Provider] - 2-3 Days Forms: Work/School Release Form(ED) Time of Disposition: 17:42 Print Language: BULGARIAN
[2021-03-24 16:02] LABS: Basophils % (Auto) 0.5 % (0.0-1.8); Eosinophils # (Auto) 0.3 K/mm3 (0.0-0.4); Eosinophils % (Auto) 3.7 % (0.0-4.3); Hematocrit 43.5 % (30.3-42.9); Hemoglobin 14.5 gm/dl (10.1-14.3); Lymphocytes # (Auto) 2.2 K/mm3 (1.2-5.4); Lymphocytes % (Auto) 24.9 % (13.4-35.0); Mean Corpuscular HGB Conc 33 % (30-34); Mean Corpuscular Volume 100 fl (79-97); Monocytes # (Auto) 0.7 K/mm3 (0.0-0.8); Monocytes % (Auto) 7.9 % (0.0-7.3); Platelet Count 130 K/mm3 (140-440); Red Blood Count 4.37 M/mm3 (3.65-5.03)
[2021-03-24 16:29] LABS: Alanine Aminotransferase 15 units/L (7-56); Albumin 3.8 g/dL (3.9-5); BUN/Creatinine Ratio 14; Blood Urea Nitrogen 11 mg/dL (7-17); Hemolysis Index 46
--- NOTE | 2021-03-24 16:41 | XRay Report ---
ABDOMEN 3 VIEW(S) INDICATION / CLINICAL INFORMATION: constipation. COMPARISON: None available. FINDINGS: TUBES / LINES: None. BOWEL GAS PATTERN: Nonobstructive bowel gas pattern. Abundant fecal material noted in the descending colon and rectal vault. FREE AIR / EXTRALUMINAL GAS: None seen. ADDITIONAL FINDINGS: Moderate lumbar spondylosis. CHEST: Visualized chest shows no significant abnormality. IMPRESSION: 1. Findings consistent with provided history of constipation. Signer Name: Neri Louis MD Signed: 03/24/2021 4:37 PM Workstation Name: [id number]
[2021-03-24 16:46] LABS: Bilirubin,Urine NEG (Negative); Blood,Urine NEG (Negative); Color,Urine Yellow (Yellow); Mucus,Urine FEW /HPF; Protein,Urine <15 mg/dL mg/dL (Negative); Urobilinogen,Urine < 2.0 mg/dL (<2.0)
== END 2021-03-24 18:49 | disposition home or self-care (01) ==
LOC: ED 13:46
DX: K59.00 Constipation, unspecified (principal); R10.30 Lower abdominal pain, unspecified; I10 Essential (primary) hypertension; E11.9 Type 2 diabetes mellitus without complications; F41.9 Anxiety disorder, unspecified; K21.9 Gastro-esophageal reflux disease without esophagitis; J45.909 Unspecified asthma, uncomplicated; F17.200 Nicotine dependence, unspecified, uncomplicated; Z98.890 Other specified postprocedural states; Z79.899 Other long term (current) drug therapy; Z88.8 Allergy status to other drugs, medicaments and biological substances
CPT/HCPCS: 36415; 74019; 80053; 81001; 83690; 85025

== ENCOUNTER 2021-09-08 15:32 | Emergency (ER) | payer BC ==
[2021-09-08] MEDS ORDERED: LIDOCAINE (1%) 10 MG/1 ML VIAL 20 ML MDV INFILTRATI ONE (16:43)
--- NOTE | 2021-09-08 17:02 | Emergency Department Report ---
ED General Adult HPI - General Chief complaint: Skin/Abscess/Foreign Body Stated complaint: LUMP ON LEFT NECK PUI?: No Time Seen by Provider: 09/08/21 16:18 Source: patient, RN notes reviewed, old records reviewed Mode of arrival: Ambulatory Limitations: No Limitations - History of Present Illness Initial comments: Patient is a 51-year-old female. She is sent to the emergency room by her primary care doctor, Dr. Velasco. The patient presents to the ER today with a complaint of nontraumatic left anterior cervical neck pain, swelling, lump. Symptoms present for 3 days. There is redness and tenderness. Patient denies other complaints. She specifically denies dysphonia, dysphagia, loss of taste and smell, throat pain and neck pain. She states that her primary care doctor Dr. Velasco wanted her to be evaluated by general surgeon, Dr. Walsh. The pain increases with palpation. The pain decreases with rest. The patient denies other acute complaints. -: days(s) Location: neck Radiation: non-radiation Quality: aching Consistency: constant Improves with: rest Worsens with: movement - Related Data Home Medications Medication Instructions Recorded Confirmed Last Taken Triamterene/Hydrochlorothiazid 37.5 each PO DAILY 03/04/14 02/08/17 02/08/17 14:47 [Triamterene-Hctz 50-25 mg Cap] lisinopriL [Zestril] 20 mg PO QDAY 03/04/14 02/08/17 02/08/17 14:48 Previous Rx's Medication Instructions Recorded Last Taken Type Benzonatate [Tessalon Perles] 100 mg PO Q8HR PRN #30 capsule 05/10/20 Unknown Rx Fluticasone [Flonase] 2 spray NS QDAY #1 bottle 05/10/20 Unknown Rx Loratadine [Claritin] 10 mg PO DAILY #30 tablet 05/10/20 Unknown Rx Acetaminophen [Non-Aspirin Extra 500 mg PO Q6HR PRN #30 tablet 03/13/21 Unknown Rx Strength] Albuterol Sulfate [Proair 90 mcg IH Q4HR PRN #2 aer.pow.ba 03/13/21 Unknown Rx Respiclick] Benzonatate [Tessalon Perles] 100 mg PO Q8HR PRN #30 capsule 03/13/21 Unknown Rx Fluticasone [Flonase] 1 spray NS QDAY #1 bottle 03/13/21 Unknown Rx predniSONE [Deltasone] 40 mg PO QDAY #8 tab 03/13/21 Unknown Rx Docusate Sodium [Colace] 100 mg PO BID PRN #20 capsule 03/24/21 Unknown Rx Glycerin 1 each RC DAILY PRN #7 supp.rect 03/24/21 Unknown Rx Sodium Phosphate,[place]-Dibasic 133 ml RC ONCE #1 enema 03/24/21 Unknown Rx [Enema Ready To Use] DOXYCYCLINE Hyclate [Vibramycin] 100 mg PO Q12HR #14 capsule 09/08/21 Unknown Rx Allergies Allergy/AdvReac Type Severity Reaction Status Date / Time promethazine HCl Allergy Hives Verified 02/08/17 14:46 [From Phenergan] ED Review of Systems ROS: Stated complaint: LUMP ON LEFT NECK Other details as noted in HPI Constitutional: denies: fever, malaise Eyes: denies: vision change ENT: denies: epistaxis Respiratory: denies: cough Cardiovascular: denies: chest pain Gastrointestinal: denies: abdominal pain Skin: lesions Neurological: denies: weakness Psychiatric: anxiety ED Past Medical Hx - Past Medical History Hx Hypertension: Yes Hx Congestive Heart Failure: No Hx Diabetes: Yes Hx GERD: Yes Hx Psychiatric Treatment: Yes (anxiety) Hx Asthma: Yes Hx COPD: No - Surgical History Additional Surgical History: partial hysterectomy. csection x 2 - Social History Smoking Status: Current Every Day Smoker Substance Use Type: None - Medications Home Medications: Home Medications Medication Instructions Recorded Confirmed Last Taken Type Triamterene/Hydrochlorothiazid 37.5 each PO DAILY 03/04/14 02/08/17 02/08/17 14:47 History [Triamterene-Hctz 50-25 mg Cap] lisinopriL [Zestril] 20 mg PO QDAY 03/04/14 02/08/17 02/08/17 14:48 History Benzonatate [Tessalon Perles] 100 mg PO Q8HR PRN #30 capsule 05/10/20 Unknown Rx Fluticasone [Flonase] 2 spray NS QDAY #1 bottle 05/10/20 Unknown Rx Loratadine [Claritin] 10 mg PO DAILY #30 tablet 05/10/20 Unknown Rx Acetaminophen [Non-Aspirin Extra 500 mg PO Q6HR PRN #30 tablet 03/13/21 Unknown Rx Strength] Albuterol Sulfate [Proair 90 mcg IH Q4HR PRN #2 aer.pow.ba 03/13/21 Unknown Rx Respiclick] Benzonatate [Tessalon Perles] 100 mg PO Q8HR PRN #30 capsule 03/13/21 Unknown Rx Fluticasone [Flonase] 1 spray NS QDAY #1 bottle 03/13/21 Unknown Rx predniSONE [Deltasone] 40 mg PO QDAY #8 tab 03/13/21 Unknown Rx Docusate Sodium [Colace] 100 mg PO BID PRN #20 capsule 03/24/21 Unknown Rx Glycerin 1 each RC DAILY PRN #7 supp.rect 03/24/21 Unknown Rx Sodium Phosphate,[place]-Dibasic 133 ml RC ONCE #1 enema 03/24/21 Unknown Rx [Enema Ready To Use] DOXYCYCLINE Hyclate [Vibramycin] 100 mg PO Q12HR #14 capsule 09/08/21 Unknown Rx ED Physical Exam - General Limitations: No Limitations General appearance: alert, anxious, obese - Head Head exam: Present: atraumatic, normocephalic - Eye Eye exam: Present: normal appearance, EOMI. Absent: nystagmus - ENT ENT exam: Present: normal exam, normal orophraynx, mucous membranes moist, normal external ear exam - Neck Neck exam: Present: normal inspection, tenderness (On the left anterior cervical chain, there is isolated adenopathy, with induration, and minimal fluctuance. Approximately 3 cm), full ROM, lymphadenopathy. Absent: meningismus, thyromegaly - Respiratory Respiratory exam: Present: normal lung sounds bilaterally. Absent: respiratory distress, wheezes, rales, rhonchi, stridor - Cardiovascular Cardiovascular Exam: Present: regular rate, normal rhythm, normal heart sounds. Absent: bradycardia, tachycardia, irregular rhythm, systolic murmur, diastolic murmur, rubs, gallop - GI/Abdominal GI/Abdominal exam: Present: soft. Absent: distended, tenderness, guarding, rebound, rigid, pulsatile mass - Extremities Exam Extremities exam: Present: normal inspection, full ROM, other (2+ pulses noted in the bilateral upper and lower extremities. There is no palpable cord. negative Homans sign. Muscular compartments are soft. The pelvis is stable.). Absent: tenderness, calf tenderness - Back Exam Back exam: Present: normal inspection, full ROM. Absent: tenderness, CVA tend erness (R), CVA tenderness (L), paraspinal tenderness, vertebral tenderness - Neurological Exam Neurological exam: Present: alert, oriented X3, other (No facial droop. Tongue midline. Extraocular movements intact bilaterally. Facial sensation intact to light touch in V1, V2, V3 distribution bilaterally. 5 and a 5 strength in 4 extremities. Sensation intact to light touch in 4 extremities.) - Psychiatric Psychiatric exam: Present: anxious - Skin Skin exam: Present: warm, dry, intact, normal color. Absent: rash ED Course Vital Signs 09/08/21 09/08/21 09/08/21 16:00 16:06 17:24 Temperature 98.7 F Pulse Rate 79 59 L Respiratory 18 Rate Blood Pressure 121/92 O2 Sat by Pulse 94 97 96 Oximetry 09/08/21 09/08/21 17:30 18:06 Temperature Pulse Rate 75 Respiratory 13 16 Rate Blood Pressure 131/90 O2 Sat by Pulse 98 99 Oximetry - I & D Left Anterior Neck Type of Procedure: Simple Site: Left neck Blade Size: 11 I & D Procedure: betadine prep, sterile drapes applied Progress: Patient provided verbal informed consent for left anterior neck aspiration and stab incision/I&D. Discussed risks, benefits and alternatives. After patient provided verbal informed consent, while nurse Kaveh is present as a witness, the left anterior neck is prepped with sterile Betadine. Using a 26- gauge needle, 4 to 5 cc of 2% lidocaine with epinephrine are infiltrated over the points of maximal fluctuance. Subsequently, using an 18-gauge needle, approximately 1-1/2 cc of purulent material are aspirated from the neck abscess. Then, using an 11 blade, a stab incision is made over the point of maximal fluctuance, and approximately 3 to 4 cc of bloody purulent material are expressed. Subsequently, 2 x 2 gauze is applied, with Tegaderm. Patient tolerated the procedure well. All questions answered. No complications noted. ED Medical Decision Making - Lab Data Vital Signs 09/08/21 09/08/21 09/08/21 16:00 16:06 17:24 Temperature 98.7 F Pulse Rate 79 59 L Respiratory 18 Rate Blood Pressure 121/92 O2 Sat by Pulse 94 97 96 Oximetry 09/08/21 09/08/21 17:30 18:06 Temperature Pulse Rate 75 Respiratory 13 16 Rate Blood Pressure 131/90 O2 Sat by Pulse 98 99 Oximetry - Medical Decision Making Differential diagnosis, including but not limited to: Cellulitis, abscess, infected lymph node Assessment and plan: 51-year-old female, who was afebrile, with reassuring vital signs, who is not stridulous, protecting her airway, in no acute distress, without evidence of deep airway infection or neck space compromise, presenting with superficial left anterior neck cellulitis, and superimposed abscess, likely involving lymph node. Bedside [id number] ultrasound was performed, demonstrates tissue cobblestoning, and small pockets of abscess fluid. The lesion appears to be superficial to the platysma on ultrasound. Contacted general surgeon, Dr. Walsh discussed the patient's history, physical, clinical impression, and my ultrasonographic interpretation. We both agree that this patient does not require emergent or urgent general surgical consultation. The aforementioned surgeon is in agreement with my plan for aspiration, and stab incision. Please reference procedure note. This was performed, and the patient tolerated the procedure well. Discharged with doxycycline as monotherapy and instructions to follow-up with outpatient general surgeon. All questions answered. Return precautions are reviewed Critical care attestation.: If time is entered above; I have spent that time in minutes in the direct care of this critically ill patient, excluding procedure time. ED Disposition Clinical Impression: Abscess, Induration, skin Disposition: 01 HOME / SELF CARE / HOMELESS Is pt being admited?: No Does the pt Need Aspirin: No Condition: Stable Instructions: Skin Abscess Additional Instructions: Please take the antibiotics as directed. Apply warm compresses to the affected area as often as as needed. Patient may take [id number] acetaminophen and or ibuprofen as needed for physical pain. Please follow-up with your outpatient primary care doctor or general surgeon, Dr. Cao, within the next week. The general surgeon would like to see you in the office either Saturday or of next week. This is September 13September 14, 2021. Please return to the emergency room right away with new pain, worsened pain, migration of pain, projectile vomiting, change in mental status, confusion, inability tolerate liquid feeds, inability to speak, inability to breathe, midline neck pain, elevation of the base of the tongue, or pain with neck flexion. When taking the doxycycline medication, avoid exposure to direct sunlight. Referrals: LUISA WALSH DO [Staff Physician] - 7-10 days Forms: Work/School Release Form(ED)
[2021-09-08] MEDS ORDERED: IBUPROFEN 400 MG TAB PO ONE (17:18)
[2021-09-08] MEDS ORDERED: ACETAMINOPHEN 500 MG TAB PO ONE (17:18)
[2021-09-08] MEDS ORDERED: LIDOCAINE 2%/EPINEPHRINE 1:100,000 VIAL (20 ML) INFILTRATI ONE (17:19)
[2021-09-08] MEDS ORDERED: DOXYCYCLINE 100 MG CAP PO ONE (19:19)
[2021-09-08 19:43] VITALS: BP 137/83
[2021-09-08] MEDS ORDERED: POVIDONE-IODINE OINTMENT 28.35 GM TP SCH (20:00)
== END 2021-09-08 20:46 | disposition home or self-care (01) ==
LOC: ED 15:32
DX: L02.11 Cutaneous abscess of neck (principal); R23.4 Changes in skin texture; F17.200 Nicotine dependence, unspecified, uncomplicated; I10 Essential (primary) hypertension; E11.8 Type 2 diabetes mellitus with unspecified complications; J45.909 Unspecified asthma, uncomplicated; Z88.8 Allergy status to other drugs, medicaments and biological substances
CPT/HCPCS: 99282; 99283

== ENCOUNTER 2022-02-23 13:45 | Emergency (ER) | payer BC ==
[2022-02-23 16:09] VITALS: BP 147/93
[2022-02-23] MEDS ORDERED: KETOROLAC 30 MG/1 ML INJ IM ONE (18:20)
[2022-02-23] MEDS ORDERED: dexAMETHasone 20 MG/5 ML VIAL IM ONE (18:20)
--- NOTE | 2022-02-23 18:33 | Emergency Department Report ---
ED Lower Extremity HPI - General Chief Complaint: Extremity Problem,Nontraumatic Stated Complaint: LT LEG PAIN Source: patient Mode of arrival: Ambulatory Limitations: No Limitations - History of Present Illness Initial Comments: 51-year-old female presents to the ED complaining of left leg pain x3 weeks . 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 Patient states she has had this pain in the past. Patient states that the pain is normally relieved with a steroid injection and Toradol .no obvious deformity noted. No distract injury noted. No edema noted. Patient is ambulatory. No acute distress noted no distracting injury noted. No obvious deformity noted. Patient is alert and oriented x3. Onset/Timin -: week(s) Severity scale (0 -10): 6 Improves With: nothing Treatments Prior to Arrival: NSAIDS - Related Data Home Medications Medication Instructions Recorded Confirmed Last Taken Triamterene/Hydrochlorothiazid 37.5 each PO DAILY 03/04/14 02/08/17 02/08/17 14:47 [Triamterene-Hctz 50-25 mg Cap] lisinopriL [Zestril] 20 mg PO QDAY 03/04/14 02/08/17 02/08/17 14:48 Previous Rx's Medication Instructions Recorded Last Taken Type Benzonatate [Tessalon Perles] 100 mg PO Q8HR PRN #30 capsule 05/10/20 Unknown Rx Fluticasone [Flonase] 2 spray NS QDAY #1 bottle 05/10/20 Unknown Rx Loratadine [Claritin] 10 mg PO DAILY #30 tablet 05/10/20 Unknown Rx Acetaminophen [Non-Aspirin Extra 500 mg PO Q6HR PRN #30 tablet 03/13/21 Unknown Rx Strength] Albuterol Sulfate [Proair 90 mcg IH Q4HR PRN #2 aer.pow.ba 03/13/21 Unknown Rx Respiclick] Benzonatate [Tessalon Perles] 100 mg PO Q8HR PRN #30 capsule 03/13/21 Unknown Rx Fluticasone [Flonase] 1 spray NS QDAY #1 bottle 03/13/21 Unknown Rx predniSONE [Deltasone] 40 mg PO QDAY #8 tab 03/13/21 Unknown Rx Docusate Sodium [Colace] 100 mg PO BID PRN #20 capsule 03/24/21 Unknown Rx Glycerin 1 each RC DAILY PRN #7 supp.rect 03/24/21 Unknown Rx Sodium Phosphate,[place]-Dibasic 133 ml RC ONCE #1 enema 03/24/21 Unknown Rx [Enema Ready To Use] DOXYCYCLINE Hyclate [Vibramycin] 100 mg PO Q12HR #14 capsule 09/08/21 Unknown Rx predniSONE [Deltasone] 50 mg PO QDAY 3 Days #3 tab 02/23/22 Unknown Rx traMADoL [Ultram] 50 mg PO Q6HR PRN 3 Days #12 tablet 02/23/22 Unknown Rx Allergies Allergy/AdvReac Type Severity Reaction Status Date / Time promethazine HCl Allergy Hives Verified 02/08/17 14:46 [From Phenergan] ED Review of Systems ROS: Stated complaint: LT LEG PAIN Other details as noted in HPI Constitutional: denies: chills, fever Eyes: denies: eye pain, eye discharge, vision change ENT: denies: ear pain, throat pain Respiratory: denies: cough, shortness of breath, wheezing Cardiovascular: denies: chest pain, palpitations Endocrine: no symptoms reported Gastrointestinal: denies: abdominal pain, nausea, diarrhea Genitourinary: denies: urgency, dysuria, discharge Musculoskeletal: denies: back pain, joint swelling, arthralgia Skin: denies: rash, lesions Neurological: denies: headache, weakness, paresthesias Psychiatric: denies: anxiety, depression Hematological/Lymphatic: denies: easy bleeding, easy bruising ED Past Medical Hx - Past Medical History Hx Hypertension: Yes Hx Congestive Heart Failure: No Hx Diabetes: Yes Hx GERD: Yes Hx Psychiatric Treatment: Yes (anxiety) Hx Asthma: Yes Hx COPD: No - Surgical History Additional Surgical History: partial hysterectomy. csection x 2 - Social History Smoking Status: Current Every Day Smoker Substance Use Type: None - Medications Home Medications: Home Medications Medication Instructions Recorded Confirmed Last Taken Type Triamterene/Hydrochlorothiazid 37.5 each PO DAILY 03/04/14 02/08/17 02/08/17 14:47 History [Triamterene-Hctz 50-25 mg Cap] lisinopriL [Zestril] 20 mg PO QDAY 03/04/14 02/08/17 02/08/17 14:48 History Benzonatate [Tessalon Perles] 100 mg PO Q8HR PRN #30 capsule 05/10/20 Unknown Rx Fluticasone [Flonase] 2 spray NS QDAY #1 bottle 05/10/20 Unknown Rx Loratadine [Claritin] 10 mg PO DAILY #30 tablet 05/10/20 Unknown Rx Acetaminophen [Non-Aspirin Extra 500 mg PO Q6HR PRN #30 tablet 03/13/21 Unknown Rx Strength] Albuterol Sulfate [Proair 90 mcg IH Q4HR PRN #2 aer.pow.ba 03/13/21 Unknown Rx Respiclick] Benzonatate [Tessalon Perles] 100 mg PO Q8HR PRN #30 capsule 03/13/21 Unknown Rx Fluticasone [Flonase] 1 spray NS QDAY #1 bottle 03/13/21 Unknown Rx predniSONE [Deltasone] 40 mg PO QDAY #8 tab 03/13/21 Unknown Rx Docusate Sodium [Colace] 100 mg PO BID PRN #20 capsule 03/24/21 Unknown Rx Glycerin 1 each RC DAILY PRN #7 supp.rect 03/24/21 Unknown Rx Sodium Phosphate,[place]-Dibasic 133 ml RC ONCE #1 enema 03/24/21 Unknown Rx [Enema Ready To Use] DOXYCYCLINE Hyclate [Vibramycin] 100 mg PO Q12HR #14 capsule 09/08/21 Unknown Rx predniSONE [Deltasone] 50 mg PO QDAY 3 Days #3 tab 02/23/22 Unknown Rx traMADoL [Ultram] 50 mg PO Q6HR PRN 3 Days #12 tablet 02/23/22 Unknown Rx ED Physical Exam - General Limitations: No Limitations General appearance: alert, in no apparent distress - Head Head exam: Present: atraumatic, normocephalic - Eye Eye exam: Present: normal appearance - ENT ENT exam: Present: mucous membranes moist - Neck Neck exam: Present: normal inspection - Respiratory Respiratory exam: Present: normal lung sounds bilaterally. Absent: respiratory distress - Cardiovascular Cardiovascular Exam: Present: regular rate, normal rhythm. Absent: systolic murmur, diastolic murmur, rubs, gallop - GI/Abdominal GI/Abdominal exam: Present: soft, normal bowel sounds - Extremities Exam Extremities exam: Present: normal inspection - Back Exam Back exam: Present: normal inspection - Neurological Exam Neurological exam: Present: alert, oriented X3 - Psychiatric Psychiatric exam: Present: normal affect, normal mood - Skin Skin exam: Present: warm, dry, intact, normal color. Absent: rash ED Course Vital Signs 02/23/22 16:07 Temperature 98.4 F Pulse Rate 93 H Respiratory 18 Rate Blood Pressure 147/93 [Right] O2 Sat by Pulse 100 Oximetry ED Lower Extremity MDM - Medical Decision Making 51-year-old female presents to the ED complaining of left leg pain x3 weeks. 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 Patient states she has had this pain in the past. Patient states that the pain is normally relieved with a steroid injection and Toradol .no obvious deformity noted. No distract injury noted. No edema noted. Patient is ambulatory. Patient is unremarkable pain starts at low lumbar back area and radiates down her left leg. Patient has been treated for sciatica pain in the past. Rechecked the patient is resting quietly quietly and comfortable and feeling better. I discussed the results of diagnostic study, my clinical impression and the plan for further treatment with the patient. Patient agrees with plan and discharge at this present time. All question addressed. I have given the patient instruction regarding a diagnosis ,expectation ,follow- up and return precaution. I explained to the patient that emergent condition may arise and to return to the ED for new worsen and any new persisting condition. I have explained the importance of following up with the primary care physician or referral physician listed below has instructed. The patient verbalized understanding of discharge instruction. Critical care attestation.: If time is entered above; I have spent that time in minutes in the direct care of this critically ill patient, excluding procedure time. ED Disposition Clinical Impression: Back pain Qualifiers: Back pain location: low back pain Chronicity: unspecified Back pain laterality: unspecified Sciatica presence: with sciatica Sciatica Qualifiers: Laterality: left Qualified Code(s): M54.32 - Sciatica, left side Disposition: 01 HOME / SELF CARE / HOMELESS Is pt being admited?: No Does the pt Need Aspirin: No Condition: Stable Instructions: Acute Back Pain, Adult, Sciatica, [id number] Additional Instructions: Take medication as prescribed Return the ED for worsening symptoms Prescriptions: predniSONE [Deltasone] 50 mg PO QDAY 3 Days #3 tab traMADoL [Ultram] 50 mg PO Q6HR PRN 3 Days #12 tablet PRN Reason: Pain Referrals: NOEMI SAMS PA [Primary Care Provider] - 3-5 Days SHELBY CHOW MD [Staff Physician] - 3-5 Days Forms: Work/School Release Form(ED)
== END 2022-02-23 19:40 | disposition home or self-care (01) ==
LOC: ED 13:45
DX: M54.42 Lumbago with sciatica, left side (principal); I10 Essential (primary) hypertension; E11.9 Type 2 diabetes mellitus without complications; K21.9 Gastro-esophageal reflux disease without esophagitis; J45.909 Unspecified asthma, uncomplicated; F41.9 Anxiety disorder, unspecified; Z98.890 Other specified postprocedural states; Z90.710 Acquired absence of both cervix and uterus; Z88.8 Allergy status to other drugs, medicaments and biological substances; Z79.899 Other long term (current) drug therapy
CPT/HCPCS: 96372; 99282; J1100; J1885